=== PATIENT | male | born 1955 | race Caucasian/White ===

== ENCOUNTER 2017-02-19 19:38 | Emergency (ER) | payer OTHER ==
[~2017-02-19] VITALS: Ht 175.3 cm; Wt 79.5 kg
[~2017-02-19 19:38] MED LIST: CALC600T34 PO; QUET1TAB66 PO
[2017-02-19 19:40] VITALS: BP 167/87; PULSE 112; RESP 20; TEMP 98.1; O2SAT 97
[2017-02-19] MEDS ORDERED: SODIUM CHLOR 0.9% 1000 ML INJ 1,000 ML IV ONE (20:12)
[2017-02-19] MEDS ORDERED: SODIUM CHLORIDE 0.9% FLUSH 10 ML FLUSH IVF PRN (20:15)
[2017-02-19] MEDS ORDERED: INSULIN HUMAN REGULAR 1,000 UNITS/10 ML VIAL IV PUSH ONE (20:15)
[2017-02-19] MEDS ORDERED: CLAR10CA3 PO (20:17)
[2017-02-19] MEDS ORDERED: PRAZ2CAP PO (20:17)
[2017-02-19] MEDS ORDERED: ASPI81CH37 CHEW (20:17)
[2017-02-19] MEDS ORDERED: SUDO60TA2 PO (20:17)
[2017-02-19] MEDS ORDERED: FLUT50SP EACH NARE (20:17)
[2017-02-19] MEDS ORDERED: GLIP5TAB8 PO (20:17)
[2017-02-19] MEDS ORDERED: OMEP20TA PO (20:17)
[2017-02-19] MEDS ORDERED: METF1000 PO (20:17)
[2017-02-19] MEDS ORDERED: GEMF600T PO (20:17)
[2017-02-19] MEDS ORDERED: HYDR-3133 PO (20:17)
[2017-02-19] MEDS ORDERED: DOCU100C PO (20:17)
[2017-02-19] MEDS ORDERED: TOFR25TA PO (20:17)
[2017-02-19] MEDS ORDERED: SERT-129 PO (20:17)
[2017-02-19] MEDS ORDERED: QUET1TAB11 PO (20:17)
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
[2017-02-19 20:51] VITALS: O2SAT 95
[2017-02-19 21:05] LABS: CHLORIDE 93 MEQ/L (98-107); POTASSIUM 4.7 MEQ/L (3.5-5.1); SODIUM (NA) 129 MEQ/L (136-145)
[2017-02-19 21:08] LABS: ANION GAP 9 MEQ/L (5-15); BICARBONATE 26.8 MEQ/L (21.0-32.0)
[2017-02-19 21:12] LABS: AUTOMATED NEUTROPHIL # 5.3 TH/MM3 (1.8-7.7); BASOPHIL # 0.1 TH/MM3 (0-0.2); BASOPHIL % 0.6 % (0.0-2.0); EOSINOPHIL # 0.2 TH/MM3 (0-0.4); EOSINOPHIL % 1.9 % (0.0-4.0); HEMATOCRIT 40.9 % (39.0-51.0); HEMO FLAGS DIFF FINAL; LYMPH % 35.1 % (9.0-44.0); LYMPHOCYTE # 3.4 TH/MM3 (1.0-4.8); MEAN CELL VOLUME 81.7 FL (80.0-100.0); MEAN CORPUSCULAR HEMOGLOBIN 27.5 PG (27.0-34.0); MEAN CORPUSCULAR HGB CONC 33.6 % (32.0-36.0); MONO % 7.8 % (0.0-8.0); NEUT % 54.6 % (16.0-70.0); PLATELET COUNT 404 TH/MM3 (150-450); RED BLOOD COUNT 5.01 MIL/MM3 (4.50-5.90); RED CELL DISTRIBUTION WIDTH 13.7 % (11.6-17.2); WHITE BLOOD COUNT 9.8 TH/MM3 (4.0-11.0)
[2017-02-19 21:23] LABS: BLOOD, URINE NEG (NEG); KETONE, URINE NEG (NEG); NITRITE,URINE NEG (NEG); PH, URINE 6.5 (5.0-8.5)
[2017-02-19 21:27] LABS: GLUCOSE,URINE 1000 OR GREATER mg/dL (NEG)
[2017-02-19 21:28] LABS: COMMENT (UR) CULT NOT INDICATED; CULTURE IF INDICATED CULT NOT INDICATED; SQUAMOUS EPITHELIAL CELL URINE 0-5 /hpf (0-5); URINE COLOR YELLOW (YELLW/STRAW); WBC, URINE 0-2 /hpf (0-5)
[2017-02-19 21:30] LABS: ALKALINE PHOSPHATASE 146 U/L (45-117); ALT (GPT) 61 U/L (12-78); AST (GOT) 36 U/L (15-37); BETA-HYDROXYBUTYRATE 0.16 MMOL/L (0.00-0.39); BLOOD UREA NITROGEN 11 MG/DL (7-18); GLOMERULAR FILTRATION RATE 68 ML/MIN (>89); MAGNESIUM 1.8 MG/DL (1.5-2.5); TOTAL BILIRUBIN ADULT 0.2 MG/DL (0.2-1.0)
[2017-02-19 21:52] VITALS: BP 169/88; PULSE 100; RESP 18; O2SAT 100
--- NOTE | 2017-02-20 11:30 | EKG ---
Date Performed: 02/19/2017 Time Performed: 20:25:37 PTAGE: 61 years EKG: SINUS TACHYCARDIA ABNORMAL RHYTHM ECG Compared to prior tracing no significant change PREVIOUS TRACING : 10/29/2014 21.28 DOCTOR: Anton Mancilla Interpretating Date/Time 02/20/2017 11:28:26
== END 2017-02-19 22:20 | disposition home or self-care (01) ==
LOC: PHED 19:38
DX: E11.65 Type 2 diabetes mellitus with hyperglycemia (principal); R35.8 Other polyuria; R63.1 Polydipsia; R53.1 Weakness; R20.2 Paresthesia of skin; R00.0 Tachycardia, unspecified; I10 Essential (primary) hypertension; E78.00 Pure hypercholesterolemia, unspecified; Z79.84 Long term (current) use of oral hypoglycemic drugs; Z87.39 Personal history of other diseases of the musculoskeletal system and connective tissue; Z86.59 Personal history of other mental and behavioral disorders; Z86.79 Personal history of other diseases of the circulatory system; Z86.69 Personal history of other diseases of the nervous system and sense organs; Z91.14 Patient's other noncompliance with medication regimen
CPT/HCPCS: 80053; 81001; 82010; 83735; 84484; 85025; 93005; 96361; 96374; 99284; J1815; J7030